=== PATIENT | female | born 1950 | race Two or more races ===

== ENCOUNTER 2019-03-02 12:14 | Emergency (ER) | payer OTHER ==
[~2019-03-02] VITALS: Ht 152.4 cm; Wt 68.0 kg
--- NOTE | 2019-03-02 12:20 | NUR ---
ED Nurse Note: PT BROUGHT IN BY AMBULANCE FROM STREET PRESENTS TO ED WITH BILATERAL LEG PAIN STARTED AN HOUR PRIOR ED ARRIVAL. DENIES INJURY. NOTED WOUNDS ON LOWER LEGS WITH REDNESS AND EDEMA. AAO X4 AND FOLLOWS COMMANDS. NO RESPIRATORY DISTRESS.
[2019-03-02 12:29] VITALS: BP 160/137
[2019-03-02] MEDS ORDERED: Morphine Sulfate 2mg/ml Inj(IV/IM USE ONLY) IVP ONE (13:00)
[2019-03-02 14:21] LABS: BASOPHILS % (AUTO) 0.6 % (0.0-2.0); EOSINOPHILS % (AUTO) 1.5 % (0.0-3.0); HEMATOCRIT 43.9 % (37.0-47.0); HEMOGLOBIN 13.6 G/DL (12.0-16.0); LYMPHOCYTES % (AUTO) 10.1 % (20.0-45.0); MEAN CORPUSCULAR VOLUME 83 FL (80-99); MONOCYTES % (AUTO) 5.9 % (1.0-10.0); NEUTROPHILS % (AUTO) 81.8 % (45.0-75.0); PLATELET COUNT 290 K/UL (150-450); RED BLOOD COUNT 5.31 M/UL (4.20-5.40); WHITE BLOOD COUNT 9.7 K/UL (4.8-10.8)
[2019-03-02 14:48] LABS: ALANINE AMINOTRANSFERASE 32 U/L (12-78); ALBUMIN 2.9 G/DL (3.4-5.0); ALBUMIN/GLOBULIN RATIO 0.6 (1.0-2.7); ALKALINE PHOSPHATASE 148 U/L (46-116); ANION GAP 6 mmol/L (5-15); ASPARTATE AMINO TRANSFERASE 27 U/L (15-37); BILIRUBIN,TOTAL 0.2 MG/DL (0.2-1.0); BLOOD UREA NITROGEN 15 mg/dL (7-18); CALCIUM 9.1 MG/DL (8.5-10.1); CARBON DIOXIDE 32 MMOL/L (21-32); CHLORIDE 96 MMOL/L (98-107); CREATINE KINASE 79 U/L (26-308); CREATININE 0.8 MG/DL (0.55-1.30); POTASSIUM 4.5 MMOL/L (3.5-5.1); SODIUM 134 MMOL/L (136-145)
--- NOTE | 2019-03-02 15:00 | NUR ---
ED Nurse Note: received patient from jack gregorio. patient resistive to care and uncooperative. patient awake and disoriented; oriented to name only. patient pulled out iv. security called.
--- NOTE | 2019-03-02 15:00 | NUR ---
HAND-OFF: Report given to MERLIN RICHARDS RN.
[2019-03-02 15:10] VITALS: BP 145/111
[2019-03-02 15:16] LABS: APPEARANCE,URINE CLEAR; BILIRUBIN, URINE NEGATIVE (NEGATIVE); COLOR,URINE PALE YELLOW; GLUCOSE, URINE (UA) 4+ (NEGATIVE); KETONES,URINE NEGATIVE (NEGATIVE); LEUKOCYTE ESTERASE ,URINE 1+ (NEGATIVE); NITRITE,URINE NEGATIVE (NEGATIVE); PH,URINE 7 (4.5-8.0); PROTEIN,URINE 1+ (NEGATIVE); UROBILINOGEN,URINE NORMAL MG/DL (0.0-1.0)
--- NOTE | 2019-03-02 15:19 | Emergency Room Report ---
History of Present Illness General Chief Complaint: Pain Source: Patient (Miles Ackerman MD) Present Illness HPI Patient is brought by EMS. They picked her up in front of store. She is unable to ambulate because of pain and weakness. She has been incontinent and smells of urine on her clothes and her lower extremities. She says she has been treated for an infection there in the past but is unclear as to when this was or when the last dressing change was. She rates the pain is severe. Bilateral. She denies any chest pain, hemoptysis or shortness of breath. She is hungry at this time and has not been eating. She denies any vomiting or diarrhea. She denies dysuria. The patient will not answer whether she has a psychiatric history but denies suicidal or homicidal ideation. 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 No fevers, chills, sore throat, chest pain, palpitations, nausea, vomiting, diarrhea, dysuria, abdominal pain, shortness of breath, depression, anxiety, visual changes, dizziness, headache. (Miles Ackerman MD) Allergies: Coded Allergies: No Known Allergies (Unverified , 03/02/19) Patient History Past Medical History: see triage record Social History: Denies: smoking Social History Narrative Living on the streets Now: No Reviewed Nursing Documentation: PMH: Agreed; PSxH: Agreed (Miles Ackerman MD) Nursing Documentation-PMH Past Medical History: No Stated History (Miles Ackerman MD) Review of Systems All Other Systems: negative except mentioned in HPI (Miles Ackerman MD) Physical Exam Vital Signs Date Time Temp Pulse Resp B/P (MAP) Pulse Ox O2 Delivery O2 Flow Rate FiO2 03/02/19 12:10 97.5 88 16 194/94 (127) 98 Room Air Sp02 EP Interpretation: reviewed, normal General Appearance: no apparent distress, other - GCS of 14, disheveled, Chronically Ill Head: normocephalic Eyes: bilateral eye PERRL, bilateral eye EOMI, bilateral eye Scleral Injection ENT: moist mucus membranes - Poor dentition Neck: supple, no meningismus Respiratory: chest non-tender, lungs clear, normal breath sounds Cardiovascular #1: regular rate, rhythm, edema - Bilateral Cardiovascular #2: 2+ radial (R) Gastrointestinal: normal inspection, normal bowel sounds, non tender, no mass, non-distended, overweight Genitourinary: no CVA tenderness Musculoskeletal: back normal, pelvis stable, Marco A's Sign negative, tender - Bilateral lower extremities Neurologic: alert, billing administrator III-XII nml as tested, oriented x3, sensory intact, cerebellar normal Psychiatric: no suicidal/homicidal ideation, anxious - Labile somewhat delusional ideation, tearful and complaining about leg pain and leg pain Skin: warm/dry, other - Open lesions bilateral lower extremities with erythema and edema (Miles Ackerman MD) Medical Decision Making Diagnostic Impression: Primary Impression: Cellulitis Qualified Codes: L03.119 - Cellulitis of unspecified part of limb Additional Impressions: Hyperglycemia Encephalopathy ER Course Patient presents with severe pain in lower extremities unable to ambulate. Differential includes cellulitis, DVT, osteomyelitis amongst others. We need to exclude sepsis and electrolyte imbalance. Patient evaluated with EKG, chest x-ray and labs. Blood cultures are obtained as well as lactate. The patient is started with IV fluid bolus and IV hydration. There will be a low threshold to start antibiotics. Clinically DVT is less likely. EKG no injury, chest x-ray no infiltrate. White count upper limit of normal but left shift. Glucose 541 without acidosis. Not DKA. Lactate normal. Discussed with Dr. Mcintyre. Agitated and delusional. Sedation ordered.15:25. Not competent to understand risks of leaving AMA. Calm after sedation. Patient signed out to Dr. Murillo. Laboratory Tests Test 03/02/19 13:31 03/02/19 14:35 White Blood Count 9.7 K/UL (4.8-10.8) Red Blood Count 5.31 M/UL (4.20-5.40) Hemoglobin 13.6 G/DL (12.0-16.0) Hematocrit 43.9 % (37.0-47.0) Mean Corpuscular Volume 83 FL (80-99) Mean Corpuscular Hemoglobin 25.5 PG (27.0-31.0) L Mean Corpuscular Hemoglobin Concent 30.9 G/DL (32.0-36.0) L Red Cell Distribution Width 12.0 % (11.6-14.8) Platelet Count 290 K/UL (150-450) Mean Platelet Volume 7.3 FL (6.5-10.1) Neutrophils (%) (Auto) 81.8 % (45.0-75.0) H Lymphocytes (%) (Auto) 10.1 % (20.0-45.0) L Monocytes (%) (Auto) 5.9 % (1.0-10.0) Eosinophils (%) (Auto) 1.5 % (0.0-3.0) Basophils (%) (Auto) 0.6 % (0.0-2.0) Erythrocyte Sedimentation Rate 78 MM/HR (0-30) H Sodium Level 134 MMOL/L (136-145) L Potassium Level 4.5 MMOL/L (3.5-5.1) Chloride Level 96 MMOL/L (98-107) L Carbon Dioxide Level 32 MMOL/L (21-32) Anion Gap 6 mmol/L (5-15) Blood Urea Nitrogen 15 mg/dL (7-18) Creatinine 0.8 MG/DL (0.55-1.30) Estimate Glomerular Filtration Rate mL/min (>60) Glucose Level 541 MG/DL (74-106) *H Lactic Acid Level 1.40 mmol/L (0.4-2.0) Calcium Level 9.1 MG/DL (8.5-10.1) Magnesium Level 2.1 MG/DL (1.8-2.4) Total Bilirubin 0.2 MG/DL (0.2-1.0) Aspartate Amino Transferase (AST) 27 U/L (15-37) Alanine Aminotransferase (ALT) 32 U/L (12-78) Alkaline Phosphatase 148 U/L (46-116) H Total Creatine Kinase 79 U/L (26-308) Troponin I 0.000 ng/mL (0.000-0.056) Pro-B-Type Natriuretic Peptide 1273 pg/mL (0-125) H Total Protein 7.7 G/DL (6.4-8.2) Albumin 2.9 G/DL (3.4-5.0) L Globulin 4.8 g/dL Albumin/Globulin Ratio 0.6 (1.0-2.7) L Thyroid Stimulating Hormone (TSH) 3.248 uiU/mL (0.358-3.740) Salicylates Level 1.3 ug/mL (2.8-20) L Acetaminophen Level < 2 MCG/ML (10-30) L Serum Alcohol < 3 mg/dL Urine Color Pale yellow Urine Appearance Clear Urine pH 7 (4.5-8.0) Urine Specific [facility] 1.005 (1.005-1.035) Urine Protein 1+ (NEGATIVE) H Urine Glucose (UA) 4+ (NEGATIVE) H Urine Ketones Negative (NEGATIVE) Urine Blood 1+ (NEGATIVE) H Urine Nitrite Negative (NEGATIVE) Urine Bilirubin Negative (NEGATIVE) Urine Urobilinogen Normal MG/DL (0.0-1.0) Urine Leukocyte Esterase 1+ (NEGATIVE) H Urine RBC 0-2 /HPF (0 - 2) Urine WBC 0-2 /HPF (0 - 2) Urine Squamous Epithelial Cells Few /LPF (NONE/OCC) Urine Bacteria Few /HPF (NONE) Urine Yeast Few /HPF (NONE) H Urine Opiates Screen Negative (NEGATIVE) Urine Barbiturates Screen Negative (NEGATIVE) Phencyclidine (PCP) Screen Negative (NEGATIVE) Urine Amphetamines Screen Negative (NEGATIVE) Urine Benzodiazepines Screen Negative (NEGATIVE) Urine Cocaine Screen Negative (NEGATIVE) Urine Marijuana (THC) Screen Negative (NEGATIVE) (Miles Ackerman MD) ER Course 69-year-old female presents with altered mental status, cellulitis of the bilateral lower extremities, patient required additional sedation with Ativan Benadryl, Glucose dropped slightly with fluid hydration We will transfer patient to [facility] Transport at bedside 7:13pm (Thomas Murillo MD) EKG Diagnostic Results Rate: normal Rhythm: NSR ST Segments: no acute changes - LVH (Miles Ackerman MD) Rhythm Strip Diag. Results EP Interpretation: yes Rhythm: NSR, no PVC's, no ectopy (Miles Ackerman MD) Chest X-Ray Diagnostic Results Chest X-Ray Diagnostic Results : Chest X-Ray Ordered: Yes # of Views/Limited/Complete: 1 View Indication: Other EP Interpretation: Yes Interpretation: no pneumothorax, other - interstitial waggoner and possible effusions small Impression: Other Electronically Signed by: Electronically signed by Miles Ackerman MD (Miles Ackerman MD) Last Vital Signs Date Time Temp Pulse Resp B/P (MAP) Pulse Ox O2 Delivery O2 Flow Rate FiO2 03/02/19 15:01 97.5 03/02/19 12:29 111 20 160/137 98 Room Air Status: improved (Miles Ackerman MD) Disposition: XFER SHT-TRM HOSP Condition: Serious Scripts No Active Prescriptions or Reported Meds Referrals: NON PHYSICIAN (PCP) Miles Ackerman MD Mar 02, 2019 15:19 Thomas Murillo MD Mar 02, 2019 19:14
[2019-03-02] MEDS ORDERED: DiphenhydrAMINE 50mg/ml Inj IM ONE (15:30)
[2019-03-02] MEDS ORDERED: LORazepam Inj 2mg/ml 1ml IM ONE (15:30)
[2019-03-02] MEDS ORDERED: Haloperidol 5mg/ml Inj IM ONE (15:30)
--- NOTE | 2019-03-02 16:00 | NUR ---
ED Nurse Note: PATIENT CALM AND COOPERATIVE. IV ACCESS ESTABLISHED; FLUIDS RUNNING PRESCRIBED
[2019-03-02 17:00] VITALS: BP 155/109
[2019-03-02] MEDS ORDERED: Piperacillin/Tazobactam 3.375 GM in NS 110 ML IVPB ONE (17:00)
[2019-03-02] MEDS ORDERED: Vancomycin 1 GM in NS 275 ML IVPB ONE (17:00)
--- NOTE | 2019-03-02 17:00 | NUR ---
ED Nurse Note: PATIENT RESTING IN BED WITH NO SIGNS OF ACUTE DISTRESS. IV INTACT AND PATENT FLUIDS RUNNING PRESCRIBED. AO2. ATTACHED TO MONITOR. WILL CONTINUE TO MONITOR.
[2019-03-02] MEDS ORDERED: DiphenhydrAMINE 50mg/ml Inj IVP ONE (18:30)
[2019-03-02] MEDS ORDERED: LORazepam Inj 2mg/ml 1ml IV ONE (18:30)
[2019-03-02 19:00] VITALS: BP 138/100
--- NOTE | 2019-03-02 19:00 | NUR ---
ED Nurse Note: REPORT GIVEN TO DERIK ROCHA. PATIENT TO BE ADMITTED TO [facility] UNDER THE CARE OF EBER RAMIREZ
[2019-03-02 19:18] VITALS: BP 138/100
--- NOTE | 2019-03-02 19:18 | NUR ---
ED Nurse Note: REPORT GIVEN TO [facility]. PATIENT STABLE FOR TRANSPORT. PATIENT LEFT ED VIA GURNEY WITH ALL BELONGINGS. TRANSFER PACKET GIVEN TO [facility]
--- NOTE | 2019-03-03 13:47 | Cardiology Report ---
APPROVED REPORT EKG Measurement Heart [id number] Normal sinus rhythm Moderate voltage criteria for LVH, may be normal variant Borderline ECG
--- NOTE | 2019-03-03 14:54 | Diagnostic Imaging Report ---
Indication: Shortness of breath Technique: One view of the chest Comparison: none Findings: The heart is enlarged. There is bilateral interstitial edema in some airspace edema. There may be small bilateral pleural effusions. Impression: Cardiomegaly Evidence of congestive heart failure, with interstitial and some airspace edema, possible small bilateral pleural effusions
== END 2019-03-02 19:18 | disposition short-term general hospital (02) ==
LOC: EDBD 12:14 → EMR 14:22
DX: L03.119 Cellulitis of unspecified part of limb (principal); G93.40 Encephalopathy, unspecified; R73.9 Hyperglycemia, unspecified; Z59.0 Homelessness
CPT/HCPCS: 36415; 71045; 80053; 80307; 81003; 82550; 83605; 83735; 83880; 84443; 84484; 85025; 85651; 87040; 87086; 93005; 96361; 96365; 96368; 96372; 96375; G0480; G0481; J1200; J1630; J2270; J2405; J2543; J3370; J7030; J7050; Z7502; 99285